=== PATIENT | male | born 1985 | race Caucasian/White ===

== ENCOUNTER 2016-08-21 16:18 | Emergency (ER) | payer OTHER ==
[~2016-08-21] VITALS: Ht 175.3 cm; Wt 86.7 kg
[2016-08-21 17:32] LABS: BLOOD UREA NITROGEN 18 mg/dL (7-18)
[2016-08-21 18:38] VITALS: BP 119/84
== END 2016-08-21 18:40 | disposition home or self-care (01) ==
LOC: ED 17:36
DX: R06.00 Dyspnea, unspecified (principal); F41.9 Anxiety disorder, unspecified
CPT/HCPCS: 36415; 71020; 80048; 82040; 84439; 84443; 85025; 93005; 99285